=== PATIENT | male | born 1955 | race Two or more races ===

== ENCOUNTER 2020-08-13 12:21 | Inpatient (IN) | payer OTHER ==
[~2020-08-13] VITALS: Ht 180.3 cm; Wt 81.6 kg
== END 2020-08-18 13:01 | disposition home or self-care (01) | DRG 683 ==
LOC: ER 12:21 → MEDJ 20:03 → MEDI 08-18 08:59
PROVIDERS: ADMIT Internal Medicine; ATTEND Internal Medicine
PROC: 4A12X4Z Monitoring of Cardiac Electrical Activity, External Approach (ICD-10-PCS; principal; 2020-08-13)
PROC: 3E0F7SF Introduction of Other Gas into Respiratory Tract, Via Natural or Artificial Opening (ICD-10-PCS; 2020-08-13)
PROC: BT43ZZZ Ultrasonography of Bilateral Kidneys (ICD-10-PCS; 2020-08-14)
DX: N17.8 Other acute kidney failure (principal); E87.0 Hyperosmolality and hypernatremia; E86.0 Dehydration; I48.91 Unspecified atrial fibrillation; E11.9 Type 2 diabetes mellitus without complications; I10 Essential (primary) hypertension; I67.9 Cerebrovascular disease, unspecified; I50.9 Heart failure, unspecified; I25.10 Atherosclerotic heart disease of native coronary artery without angina pectoris; E03.8 Other specified hypothyroidism; Z20.822 Contact with and (suspected) exposure to COVID-19; Z95.810 Presence of automatic (implantable) cardiac defibrillator